=== PATIENT | male | born 1980 | race African-American/Black ===

== ENCOUNTER 2018-12-04 18:07 | Emergency (ER) | payer OTHER, SELFPAY ==
[2018-12-04 18:54] LABS: Hemoglobin 12.5 g/dL (14.0-18.0); Mean Corpuscular HGB CONC 31.7 g/dL (32.0-36.0); Mean Corpuscular Hemoglobin 28.2 pg (27.0-31.0); Mean Platelet Volume 7.8 fL (7.4-10.4); Platelet Count 228 thou/uL (130-400); RBC Distribution Width 13.3 % (11.5-14.5); Red Blood Cell (RBC) Count 4.45 mill/uL (4.70-6.10); White Blood Cell (WBC) Count 5.9 thou/uL (4.8-10.8)
[2018-12-04 19:27] LABS: Band 1 % (5-11); Eosinophils 5 % (0-10); Hypochromia SLIGHT = 6-15 cells (100X) (0-5/hpf); Lymphocytes 63 % (21-51); MDiff Complete? YES; Monocytes 6 % (0-10); Neutrophil 25 % (42-75); Platelet Morphology Comment Appears Adequate
[2018-12-04 19:38] LABS: ALT (SGPT) 49 U/L (8-55); AST (SGOT) 26 U/L (5-34); Albumin 4.4 g/dL (3.5-5.0); Alkaline Phosphatase 83 U/L (40-150); Anion Gap 15 mmol/L (10-20); BUN (Urea Nitrogen) 13 mg/dL (8.9-20.6); Bilirubin, Total 0.2 mg/dL (0.2-1.2); CK (CPK) 594 U/L (30-200); Calc. Creatinine Clearance 0 mL/min (70-130); Calcium 9.5 mg/dL (7.8-10.44); Carbon Dioxide 26 mmol/L (22-29); Chloride 106 mmol/L (98-107); Estimated GFR-MDRD Greater than 90; Globulin 3.3 g/dL (2.4-3.5); Glucose 98 mg/dL (70-105); Lipase 25 U/L (8-78); Potassium 3.8 mmol/L (3.5-5.1); Protein, Total 7.7 g/dL (6.0-8.3); Sodium 143 mmol/L (136-145)
--- NOTE | 2018-12-04 19:55 | RAD ---
CHEST ONE VIEW: HISTORY: Chest pain. COMPARISON: Radiograph from 2017. FINDINGS: The lungs are mildly hypoinflated with vascular crowding and enlargement of the cardiac silho uette. Mild degenerative changes in both acromioclavicular joints. No focal confluent air space con solidation, pneumothorax, or effusion. IMPRESSION: 1. Mild lung hypoinflation. 2. No acute intrathoracic abnormality. POS: HOME
[2018-12-04 22:28] LABS: Troponin I Less than 0.010 ng/mL (< 0.028)
== END 2018-12-04 22:44 | disposition home or self-care (01) ==
LOC: NAV ERS 18:07
DX: R07.2 Precordial pain (principal); B20 Human immunodeficiency virus [HIV] disease; I10 Essential (primary) hypertension; I48.91 Unspecified atrial fibrillation; K21.9 Gastro-esophageal reflux disease without esophagitis; F17.210 Nicotine dependence, cigarettes, uncomplicated; Z79.899 Other long term (current) drug therapy
CPT/HCPCS: 71045; 80053; 82550; 83690; 84484; 85025; 93005